=== PATIENT | male | born 1965 | race Caucasian/White ===

== ENCOUNTER 2023-02-03 08:38 | Inpatient (IN) | payer BC ==
--- OUTSIDE RECORDS SUMMARY | 2023-02-03 08:41 | XMS REPORT | Continuity of Care Document ---
:1965 Author Organization [facility] t Address [address] [facility] [address] [place] [address] Care Team Providers Name Role Phone Gale DUFF, David Primary Care Physician [phone] Problems This patient has no known problems. Allergies, Adverse Reactions, Alerts Allergy Allergy Status Severity Reaction(s) Onset Inactive Treating Comm ents Source Name Type Date Date Clinician Penicill Propensi Active ins ty to 09-18 adverse 00:00: reaction 00 to drug Medications Ordered Filled Start Stop Current Ordering Indication Dosage Frequency Signature Comments Components Source Medication Medication Date Date Medication? Clinician (SIG) Name Name TAKE 1 2021- No 20 TABLET BY 8-24 MOUTH EVERY 00:00: DAY IN THE 00 MORNING &lt 2021-0 No 5 8-09 00:00: 00 &lt 2021-0 No 8-08 00:00: 00 amlodipine 2021-0 No 1mg 5 mg tablet 09-19 00:00: 00 lisinopril 2021-0 No 1mg 20 mg -27 tablet 00:00: 00 fluticasone 2021-0 No 1mcg/ac propionate 09-19 tuation 50 00:00: mcg/actuati 00 on nasal spray,suspe nsion Zithromax 2020-0 No mg 250 mg 9-16 tablet 00:00: 00 amlodipine 2020-0 No 1mg 5 mg tablet 03-20 00:00: 00 Zyrtec 10 2020-0 No 1mg mg tablet 03-20 00:00: 00 lisinopril 2020-0 No 1mg 20 mg -28 tablet 00:00: 00 fluticasone 2020-0 No 1mcg/ac propionate 03-20 tuation 50 00:00: mcg/actuati 00 on nasal spray,suspe nsion amlodipine 2020-0 No 1mg 5 mg tablet 2- 00:00: 00 lisinopril 2020-0 No 1mg 20 mg 2- tablet 00:00: 00 fluticasone 1-0 No 1mcg/ac propionate 2 tuation 50 00:00: mcg/actuati 00 on nasal spray,suspe nsion fluticasone 2020-0 No 1mcg/ac propionate 1 tuation 50 00:00: mcg/actuati 00 on nasal spray,suspe nsion amlodipine 2020-0 No 1mg 5 mg tablet 6- 00:00: 00 lisinopril 2020-0 No 1mg 20 mg 6-25 tablet 00:00: 00 amlodipine 2020-0 No 1mg 5 mg tablet 5- 00:00: 00 lisinopril 2020-0 No 1mg 20 mg 2-27 tablet 00:00: 00 fluticasone 2020-0 No 1mcg/ac propionate 2 tuation 50 00:00: mcg/actuati 00 on nasal spray,suspe nsion Zyrtec 10 2020-0 No 1mg mg tablet 2-27 00:00: 00 amlodipine 2020-0 No 1mg 5 mg tablet 2-27 00:00: 00 amlodipine 2020-0 No 1mg 5 mg tablet 2-14 00:00: 00 Zyrtec 10 2020-0 No 1mg mg tablet 2-14 00:00: 00 lisinopril 2020-0 No 1mg 20 mg 2-14 tablet 00:00: 00 lisinopril 2020-0 No 1mg 20 mg 2-14 tablet 00:00: 00 Vital Signs Vital Name Observation Time Observation Value Comments Source BP Systolic 2022-04-17 08:16:00 136 mm[Hg] BP Diastolic 2022-04-17 08:16:00 92 mm[Hg] Weight Measured 2022-04-17 08:16:00 196.00 pounds Height Measured 2022-04-17 08:16:00 70.00 inches Body Temperature 2022-04-17 08:16:00 Heart Rate 2022-04-17 08:16:00 70.00 /min Respiratory Rate 2022-04-17 08:16:00 16.00 /min BP Systolic 2022-04-16 17:25:00 145 mm[Hg] BP Diastolic 2022-04-16 17:25:00 93 mm[Hg] Weight Measured 2022-04-16 17:25:00 196.00 pounds Height Measured 2022-04-16 17:25:00 70.00 inches Body Temperature 2022-04-16 17:25:00 98.10 degrees Heart Rate 2022-04-16 17:25:00 70.00 /min Respiratory Rate 2022-04-16 17:25:00 BP Systolic 2020-09-24 10:14:00 108 mm[Hg] BP Diastolic 2020-09-24 10:14:00 74 mm[Hg] Weight Measured 2020-09-24 10:14:00 194.60 pounds Height Measured 2020-09-24 10:14:00 70.00 inches Body Temperature 2020-09-24 10:14:00 97.20 degrees Heart Rate 2020-09-24 10:14:00 70.00 /min Respiratory Rate 2020-09-24 10:14:00 16.00 /min BP Systolic 2020-06-25 09:07:00 133 mm[Hg] BP Diastolic 2020-06-25 09:07:00 86 mm[Hg] Weight Measured 2020-06-25 09:07:00 193.00 pounds Height Measured 2020-06-25 09:07:00 70.00 inches Body Temperature 2020-06-25 09:07:00 98.00 degrees Heart Rate 2020-06-25 09:07:00 72.00 /min Respiratory Rate 2020-06-25 09:07:00 BP Systolic 2020-02-16 10:00:00 134 mm[Hg] BP Diastolic 2020-02-16 10:00:00 92 mm[Hg] Weight Measured 2020-02-16 10:00:00 192.00 pounds Height Measured 2020-02-16 10:00:00 70.00 inches Body Temperature 2020-02-16 10:00:00 97.30 degrees Heart Rate 2020-02-16 10:00:00 61.00 /min Respiratory Rate 2020-02-16 10:00:00 BP Systolic 2019-10-20 09:06:00 122 mm[Hg] BP Diastolic 2019-10-20 09:06:00 75 mm[Hg] Weight Measured 2019-10-20 09:06:00 192.10 pounds Height Measured 2019-10-20 09:06:00 70.00 inches Body Temperature 2019-10-20 09:06:00 97.20 degrees Heart Rate 2019-10-20 09:06:00 70.00 /min Respiratory Rate 2019-10-20 09:06:00 Procedures This patient has no known procedures. Plan of Care Planned Activity Planned Date Details Comments Source Goal Plan of Care Note [code = 11852-6] Goal Plan of Care Note [code = 84986-4] Goal Plan of Care Note [code = 39611-6] Goal Plan of Care Note [code = 94767-8] Goal Plan of Care Note [code = 34007-1] Goal Plan of Care Note [code = 54050-0] Goal Plan of Care Note [code = 92029-8] Encounters Start End Encounter Admission Attending Care Care Encounter Source Date/Time Date/Time Type Type Clinicians Facility Department ID 2022-12-24 2022-12-24 Outpatient SFA SFA [id number] Mat 10:43:45 10:43:45 0503 F [place] 2022-09-15 2022-09-15 Outpatient SFA SFA [id number] Mat 13:46:46 13:46:46 0123 F [place] 2022-04-16 2022-04-16 Outpatient [id number] 00:00:00 00:00:00 Visit [id number] Results Test Description Test Time Test Comments Results Result Comments Source LIPID PANEL 2022-04-18 03:35:42 Test Item Value Reference Range Interpretation Comme nts CHOLESTEROL (test code = 2210) 168 MG/DL <200 TRIGLYCERIDES (test code = 2232) 136 MG/DL <150 HDL CHOLESTEROL (test code = 26 MG/DL >39 L 0) CALC LDL CHOL (test code = 2237) 117 MG/DL <100 H NOTE: CALCULATED LDL IS BASED ON DAE-JAMES METHOD WHICHINCLUDES A DJUSTABLE TRIGLYCERIDE:VL DL CHOLESTEROL RATIO.THIS FACT OR VARIES BY MEASURED TRIGLY CERIDE AND NON-HDLCHOLESTE ROL CONCENTRATIONS WITH INCREASED CALCULATED LDL SEENIN HIGHER T RIGLYCERIDE OR LOWER NON-HDL S PECIMENS. FOR MOREINFORMATION , SEE CLIENT ANNOUNCEMENT AT [email or web address] RATIO LDL/HDL (test code = 4.50 RATIO <3.55 H 2237) COMPREHENSIVE METABOLIC [id number] 03:35:42 Test Item Value Reference Range Interpretation Comments GLUCOSE (test code = 103 MG/DL 70-99 H 2216) BUN (test code = 13 MG/DL 6-20 2207) CREATININE (test 1.07 MG/DL 0.80-1.40 code = 221) eGFR (2020 CKD-EPI) 80 >60 (test code = 24196) ML/MIN/1.73 CALC BUN/CREAT (test 12 RATIO 6-28 code = 2235) SODIUM (test code = 136 MEQ/L 306-093 5880) POTASSIUM (test code 4.5 MEQ/L 3.5-5.4 = 2227) CHLORIDE (test code 100 MEQ/L 95-107 = 2214) CARBON DIOXIDE (test 26 MEQ/L 19-31 code = 2206) CALCIUM (test code = 9.7 MG/DL 8.5-10.5 2208) PROTEIN, TOTAL (test 11.0 G/DL 6.1-8.3 H code = 2229) ALBUMIN (test code = 3.7 G/DL 3.5-5.2 2200) CALC GLOBULIN (test 7.3 G/DL 1.9-3.7 H code = 2240) CALC A/G RATIO (test 0.5 RATIO 1.0-2.6 L code = 2234) BILIRUBIN, TOTAL 0.4 MG/DL See_Comment [Automated message] (test code = 220) The syste m which generated this result transmitted ref erence range: <=1.2. T he reference range was not used to int erpret this result as normal/abnormal . ALKALINE PHOSPHATASE 55 U/L 40-123 (test code = 2204) AST (test code = 35 U/L 9-50 2217) ALT (test code = 60 U/L 5-50 H UNLESS OTH ERWISE 2218) INDICATED, ALL TESTING PERFORM [facility]. [address] [facility] [address] GERTRUDE RODRIGEZ DIRECTOR: AZRA WHALEY M.D. IA NUMBER [id number] CAP ACCREDITATION N O. [id number] HEMOGLOBIN [id number] 02:37:03 Test Item Value Reference Range Interpretation Comments HEMOGLOBIN A1c (test code = 69102) 6.1 % 4.2-5.6 H
[2023-02-03] MEDS ORDERED: Ringers Lactate 1,000 ML IV ONE (09:22)
[2023-02-03 09:28] LABS: Absolute Lymphocytes (CBC) 0.2 K/uL (0.7-4.9); Hematocrit 17.6 % (39.6-49.0); Lymphocytes % 3.3 % (15.3-44.8); MCV 103.2 fL (80-100); MPV 7.6 fL (7.6-11.3); Protime INR 1.58
[2023-02-03 09:48] LABS: Bilirubin Total 0.5 mg/dL (0.2-1.0); Potassium 3.1 mEq/L (3.5-5.1); Protein, Total 13.3 g/dL (6.4-8.2)
--- NOTE | 2023-02-03 09:52 | RAD REPORT ---
EXAM DESCRIPTION: RAD - Chest Single View - 02/03/2023 9:43 am CLINICAL HISTORY: generalized weaknes COMPARISON: No comparisons FINDINGS: Lines: None. Lungs: Mild right basilar opacities. Pleural: No significant pleural effusions or pneumothorax. Cardiac: The heart size is within normal limits. Mediastinum: Within normal limits. Bones: No acute fractures. Other: None IMPRESSION: Mild right basilar opacities favored to represent atelectasis. Pneumonia or pneumonitis also within differential.
[2023-02-03 09:58] LABS: White Blood Cell Scan OK (OK)
[2023-02-03 09:59] LABS: Anisocytosis 1+; Blood Morphology Comment NOTED (NOT SEEN); Macrocytosis 1+; Platelet Estimate DECR
[2023-02-03] MEDS ORDERED: Levofloxacin 750mg IV 750 MG/150 ML BAG IV ONE (10:13)
[2023-02-03] MEDS ORDERED: NA CHLORIDE 0.9% 250 ML ONE (10:29)
--- NOTE | 2023-02-03 10:35 | ER ---
Nurse's Notes [facility] Name: Attila Horn Age: 57 yrs Sex: Male : 1965 Arrival Date: 02/03/2023 Time: 08:38 Bed 20 Private MD: Rhona Beasley R Diagnosis: Unspecified bacterial pneumonia;Diarrhea, unspecified;Hypokalemia;Hypo-osmolality and hyponatremia;Acute Kidney Injury Presentation: 02/03 08:45 Chief complaint: Patient states: Pt reports weakness, fever, shortness of breath X 6-7 cm10 days. Patient was seen on Thursday at [place] and has not improved. Pt A\T\Ox4, respirations even and unlabored. Pt reports dizziness, denies chest pain. Pt reports diarrhea. Coronavirus screen: Vaccine status: Patient reports being unvaccinated. At this time, the client does not indicate any symptoms associated with coronavirus-19. Ebola Screen: No symptoms or risks identified at this time. Initial Sepsis Screen: Does the patient meet any 2 criteria? HR > 90 bpm. Risk Assessment: Do you want to hurt yourself or someone else? Patient reports no desire to harm self or others. 08:45 Method Of Arrival: Ambulatory cm10 08:45 Acuity: DAIN 3 cm10 09:00 No acute neurological deficit is noted. Pre-hospital glucose is not applicable to this eh3 patient. Initial Sepsis Screen: Does the patient have a suspected source of infection? Yes: Acute abdominal pain. Onset of symptoms was January 27, 2023. Triage Assessment: 08:48 General: Appears in no apparent distress. General: Behavior is calm, cooperative, cm10 appropriate for age. Historical: - Allergies: 08:48 PENICILLINS; cm10 - Immunization history:: Adult Immunizations up to date. - Social history:: Smoking status: Patient denies any tobacco usage or history of. Screenin:00 [facility] ED Fall Risk Assessment (Adult) Score/Fall Risk Level 0 - 2 = Low Risk. Abuse eh3 screen: Denies threats or abuse. Denies injuries from another. Nutritional screening: No deficits noted. Tuberculosis screening: No symptoms or risk factors identified. Assessment: 09:00 General: Appears in no apparent distress. uncomfortable, Behavior is cooperative, eh3 appropriate for age. Pain: Denies pain. Neuro: Level of Consciousness is awake, alert, obeys commands, Oriented to person, place, time, situation. Cardiovascular: Capillary refill < 3 seconds Rhythm is sinus tachycardia. Respiratory: Airway is patent Respiratory effort is labored, Respiratory pattern is regular, symmetrical, tachypnea. GI: Abdomen is round Reports cramping, diarrhea. Derm: Skin is diaphoretic, Skin is flushed. Musculoskeletal: Circulation, motion, and sensation intact. 09:00 VAN Scoring: Arm Drift: Patients demonstrates NO arm weakness. Patient is VAN Negative. eh3 TNKase (Tenecteplase) Screening: Indications: Definite evidence of stroke, ischemic, embolic, or hypertensive: No. 10:00 Reassessment: Patient appears in no apparent distress at this time. Patient and/or eh3 family updated on plan of care and expected duration. Pain level reassessed. Patient is alert, oriented x 3, equal unlabored respirations, skin warm/dry/pink. 11:00 Reassessment: Patient appears in no apparent distress at this time. Patient and/or eh3 family updated on plan of care and expected duration. Pain level reassessed. Patient is alert, oriented x 3, equal unlabored respirations, skin warm/dry/pink. 12:00 Reassessment: Patient appears in no apparent distress at this time. Patient and/or eh3 family updated on plan of care and expected duration. Pain level reassessed. Patient is alert, oriented x 3, equal unlabored respirations, skin warm/dry/pink. 13:00 Reassessment: Patient appears in no apparent distress at this time. Patient and/or eh3 family updated on plan of care and expected duration. Pain level reassessed. Patient is alert, oriented x 3, equal unlabored respirations, skin warm/dry/pink. 13:15 Reassessment: Blood transfusion started, see paper transfusion record for additional eh3 documentation. 14:00 Reassessment: Patient appears in no apparent distress at this time. Patient and/or eh3 family updated on plan of care and expected duration. Pain level reassessed. Patient is alert, oriented x 3, equal unlabored respirations, skin warm/dry/pink. Vital Signs: 08:45 BP 100 / 68; Pulse 118; Resp 20; Temp 99.1; Pulse Ox 99% on R/A; Weight 81.65 kg; cm10 Height 5 ft. 8 in. ; Pain 6/10; 09:00 BP 105 / 71; Pulse 112; Resp 22; Pulse Ox 99% on R/A; eh3 09:30 BP 108 / 68; Pulse 113; Resp 27; Pulse Ox 100% on R/A; eh3 10:00 BP 109 / 74; Pulse 118; Resp 32; Pulse Ox 100% on R/A; eh3 10:30 BP 105 / 74; Pulse 119; Resp 28; Pulse Ox 99% on R/A; eh3 11:00 BP 113 / 77; Pulse 125; Resp 32; Pulse Ox 97% on R/A; eh3 11:30 BP 120 / 82; Pulse 136; Resp 32; Pulse Ox 98% ; eh3 12:30 BP 117 / 71; Pulse 127; Resp 40; Pulse Ox 96% on R/A; eh3 13:00 BP 115 / 77; Pulse 129; Resp 39; Temp 103.1(O); Pulse Ox 96% on R/A; eh3 13:30 BP 100 / 71; Pulse 128; Resp 43; Pulse Ox 95% on R/A; eh3 14:00 BP 90 / 59; Pulse 127; Resp 22; Temp 102; Pulse Ox 97% on R/A; eh3 08:45 Body Mass Index 27.37 (81.65 kg, 172.72 cm) cm10 08:45 Pain Scale: Adult cm10 NIH Stroke Scale Scores: 09:00 NIHSS Score: 0 eh3 ED Course: 08:42 Patient arrived in ED. mr 08:42 Rhona Beasley MD is Private Physician. mr 08:45 Felix Roberto DO is Attending Physician. ms3 08:48 Triage completed. cm10 08:49 Arm band placed on Patient placed in an exam room. cm10 09:00 Stephanie Hinojosa, RN is Primary Nurse. eh3 09:00 Patient has correct armband on for positive identification. Placed in gown. Bed in low eh3 position. Call light in reach. Side rails up X2. Adult w/ patient. Client placed on continuous cardiac and pulse oximetry monitoring. NIBP monitoring applied. Door closed. Noise minimized. 09:00 Inserted saline lock: 20 gauge in right antecubital area, using aseptic technique. eh3 Blood collected. IV inserted by JAQUI. 09:45 Chest Single View XRAY In Process Unspecified. EDMS 10:04 Second set of blood cultures drawn by me. Inserted saline lock: 20 gauge in left 3 antecubital area, using aseptic technique. Blood collected. 10:34 Louisa Montero MD is Hospitalizing Provider. ms3 11:51 Chest Abd Pelvis Wo Con In Process Unspecified. EDMS 14:54 No provider procedures requiring assistance completed. Patient admitted, IV remains in [address] Administered Medications: 09:18 Drug: Lactated Ringers Solution IV 1000 ml Route: IV; Rate: bolus; Site: right kc6 antecubital; 12:00 Follow up: IV Status: Completed infusion; IV Intake: 1000ml 3 10:10 Drug: levofloxacin IVPB 750 mg Volume: 150 ml; Route: IVPB; Infused Over: 90 mins; kc6 Site: left antecubital; 11:40 Follow up: Response: No adverse reaction; IV Status: Completed infusion; IV Intake: eh3 150ml Medication: 14:54 VIS not applicable for this client. 3 Intake: 11:40 IV: 150ml; Total: 150ml. eh3 12:00 IV: 1000ml; Total: 1150ml. 3 Outcome: 10:34 Decision to Hospitalize by Provider. ms3 14:54 Admitted to Tele accompanied by tech, family with patient, via stretcher, room 424, 3 Report called to Nisa 14:54 Condition: stable 14:54 Instructed on the need for admit. 14:57 Patient left the ED. 3 NIH Stroke Scale - NIH Stroke Score Date: 02/03/2023 Time: 09:00 Total Score = 0 10. Dysarthria (speech clarity - read or repeat words) - 0(Normal) 11. Extinction and Inattention (visual/tactile/auditory/spatial/personal) - 0(No abnormality) 1a. Level of Consciousness (LOC) - 0(Alert) 1b. Level of Consciousness (LOC) (Month \T\ Age) - 0(Both) 1c. LOC Commands (Open \T\ Closes Eyes/Progressive Assembler And Fitter) - 0(Both) 2. Best Gaze (Lateral Gaze Paresis) - 0(Normal) 3. Visual Field Loss - 0(No visual loss) 4. Facial Palsy - 0(Normal) 5a. Left Arm: Motor (10-second hold) - 0(No drift) 5b. Right Arm: Motor (10-second hold) - 0(No drift) 6a. Left Leg: Motor (5-second hold - always test supine) - 0(No drift) 6b. Right Leg: Motor (5-second hold - always test supine) - 0(No drift) 7. Limb Ataxia (finger/nose \T\ heel/lin - test with eyes open) - 0(Absent) 8. Sensory Loss (pinprick arms/legs/face) - 0(Normal) 9. Best Language: Aphasia (description/naming/reading) - 0(No aphasia) Initials: [facility] Signatures: Dispatcher [employer] EDMD Micheal, Lakesha mr FelisaFelix, DO DO ms3 Stephanie Hinojosa, RN ROSI 3 Jyotsna Nunn RN RN kc6 Judy Curiel RN RN cm10 Corrections: (The following items were deleted from the chart) 14:15 09:34 Stephanie Hinojosa, RN is Primary Nurse. [place] [address] 14:21 14:00 BP 90 / 59; Pulse 127bpm; Resp 22bpm; Pulse Ox 97% RA; [facility]
--- NOTE | 2023-02-03 10:35 | EDPHYS ---
Physician Documentation [facility] Name: Attila Horn Age: 57 yrs Sex: Male : 1965 Arrival Date: 02/03/2023 Time: 08:38 Bed 20 Private MD: Rhona Beasley R ED Physician Felix Roberto HPI: 02/03 09:08 This 57 yrs old Male presents to ER via Ambulatory with complaints of Weakness, ms3 Shortness Of Breath, Diarrhea, Fever. 09:08 57-year-old male with past medical history of hypertension presents for generalized ms3 weakness for 1 week. Patient was treated for bronchitis last week at [facility] with prednisone and azithromycin. Patient states he currently has diarrhea, fever and shortness of breath. Patient denies pain. Patient denies alleviating or inciting factors.. Historical: - Allergies: 08:48 PENICILLINS; cm10 - Immunization history:: Adult Immunizations up to date. - Social history:: Smoking status: Patient denies any tobacco usage or history of. ROS: 09:08 Neck: Negative for injury, pain, and swelling, Cardiovascular: Negative for chest pain, ms3 and palpitations. Respiratory: Negative for shortness of breath, cough, wheezing, and pleuritic chest pain, Abdomen/GI: Negative for abdominal pain, nausea, vomiting, diarrhea, and constipation, MS/Extremity: Negative for injury and deformity, Skin: Negative for injury, rash, and discoloration. 09:08 Constitutional: Positive for chills. 09:08 Neuro: Positive for weakness. 09:08 All other systems are negative. Exam: 09:08 Constitutional: This is a well developed, well nourished patient who is awake, alert, ms3 and in no acute distress. Head/Face: Normocephalic, atraumatic. Neck: Trachea midline, no cervical lymphadenopathy. Supple, full range of motion without nuchal rigidity, or vertebral point tenderness. No Meningismus. Chest/axilla: Normal chest wall appearance and motion. Nontender with no deformity. 09:08 Respiratory: Lungs have equal breath sounds bilaterally, clear to auscultation and percussion. No rales, rhonchi or wheezes noted. No increased work of breathing, no retractions or nasal flaring. Abdomen/GI: Soft, non-tender, with normal bowel sounds. No distension or tympany. No guarding or rebound. No evidence of tenderness throughout. Skin: Warm, dry with normal turgor. Normal color with no rashes, no lesions, and no evidence of cellulitis. MS/ Extremity: Pulses equal, no cyanosis. Neurovascular intact. Full, normal range of motion. 09:08 Cardiovascular: Rate: tachycardic, Rhythm: regular, Pulses: no pulse deficits are appreciated, Heart sounds: normal, normal S1and S2. 10:37 ECG was reviewed by the Attending Physician. ms3 Vital Signs: 08:45 BP 100 / 68; Pulse 118; Resp 20; Temp 99.1; Pulse Ox 99% on R/A; Weight 81.65 kg; cm10 Height 5 ft. 8 in. ; Pain 6/10; 09:00 BP 105 / 71; Pulse 112; Resp 22; Pulse Ox 99% on R/A; eh3 09:30 BP 108 / 68; Pulse 113; Resp 27; Pulse Ox 100% on R/A; eh3 10:00 BP 109 / 74; Pulse 118; Resp 32; Pulse Ox 100% on R/A; eh3 10:30 BP 105 / 74; Pulse 119; Resp 28; Pulse Ox 99% on R/A; eh3 11:00 BP 113 / 77; Pulse 125; Resp 32; Pulse Ox 97% on R/A; eh3 11:30 BP 120 / 82; Pulse 136; Resp 32; Pulse Ox 98% ; eh3 12:30 BP 117 / 71; Pulse 127; Resp 40; Pulse Ox 96% on R/A; eh3 13:00 BP 115 / 77; Pulse 129; Resp 39; Temp 103.1(O); Pulse Ox 96% on R/A; eh3 13:30 BP 100 / 71; Pulse 128; Resp 43; Pulse Ox 95% on R/A; eh3 14:00 BP 90 / 59; Pulse 127; Resp 22; Temp 102; Pulse Ox 97% on R/A; eh3 08:45 Body Mass Index 27.37 (81.65 kg, 172.72 cm) cm10 08:45 Pain Scale: Adult cm10 NIH Stroke Scale Scores: 09:00 NIHSS Score: 0 eh3 MDM: 09:43 Patient medically screened. ms3 10:34 Data reviewed: vital signs, nurses notes, lab test result(s), radiologic studies, plain ms3 films, and as a result, I will admit patient. Consideration of Admission/Observation Patient was admitted/placed on observation. Management of patient was discussed with the following: Hospitalist: Daniel. I considered the following discharge prescriptions or medication management in the emergency department Medications were administered in the Emergency Department. See MAR. Independent interpretation of the following test(s) in the Emergency Department magazine worker: rate is 118 beats/min, Rhythm is sinus tachycardia, with no ectopy, Interpretation: normal rhythm, tachycardia. Counseling: I had a detailed discussion with the patient and/or guardian regarding: the historical points, exam findings, and any diagnostic results supporting the discharge/admit diagnosis, lab results, radiology results, the need for further work-up and treatment in the hospital. Response to treatment: the patient's symptoms have mildly improved after treatment, and as a result, I will admit patient. 02/03 09:07 Order name: Blood Culture Adult (2) ms3 02/03 09:07 Order name: CBC with Diff; Complete Time: 10:30 ms3 02/03 09:07 Order name: CMP; Complete Time: 09:58 ms3 02/03 09:07 Order name: Lactate w/ 2H reflex if indic.; Complete Time: 09:43 ms3 02/03 09:07 Order name: Protime (+inr); Complete Time: 09:43 ms3 02/03 09:07 Order name: Ptt, Activated; Complete Time: 09:43 ms3 02/03 09:08 Order name: Urinalysis w/ reflexes ms3 02/03 09:31 Order name: CBC Smear Scan; Complete Time: 10:30 EDMS 02/03 09:45 Order name: Bb Add On ms3 02/03 09:45 Order name: Type And Screen ms3 02/03 10:57 Order name: B12; Complete Time: 12:22 ms3 02/03 10:57 Order name: Ferritin; Complete Time: 12:22 ms3 02/03 10:57 Order name: Iron Level ms3 02/03 10:57 Order name: Retic Count; Complete Time: 12:22 ms3 02/03 10:57 Order name: TRANSFERRIN SAT/IRON BINDING; Complete Time: 12:22 ms3 02/03 11:36 Order name: ABO/RH no charge; Complete Time: 12:22 EDMS 02/03 11:39 Order name: Packed RBC Leukored EDMS 02/03 12:32 Order name: Fecal Leukocyte Stain EDMS 02/03 12:32 Order name: Ova and Parasites EDMS 02/03 12:32 Order name: Stool Culture EDMS 02/03 13:06 Order name: Phosphorus EDMS 02/03 13:06 Order name: T4 Free EDMS 02/03 13:06 Order name: Magnesium EDMS 02/03 13:06 Order name: Thyroid Stimulating Hormone EDMS 02/03 13:11 Order name: SARS-COV-2 RT PCR bd 02/03 14:15 Order name: SARS-COV-2 RT PCR EDMS 02/03 09:08 Order name: Chest Single View XRAY; Complete Time: 09:58 ms3 02/03 11:51 Order name: Chest Abd Pelvis Wo Con; Complete Time: 12:22 EDMS 02/03 09:07 Order name: EKG; Complete Time: 09:08 ms3 02/03 09:07 Order name: Accucheck; Complete Time: 09:08 ms3 02/03 09:07 Order name: Cardiac monitoring; Complete Time: 09:08 ms3 02/03 09:07 Order name: EKG - Nurse/Tech; Complete Time: 09:08 ms3 02/03 09:07 Order name: IV Saline Lock - Large Bore; Complete Time: 09:08 ms3 02/03 09:07 Order name: Labs collected and sent; Complete Time: 09:13 ms3 02/03 09:07 Order name: O2 Per Protocol; Complete Time: 09:08 ms3 02/03 09:07 Order name: O2 Sat Monitoring; Complete Time: 09:08 ms3 02/03 09:07 Order name: Vital Signs; Complete Time: 09:08 ms3 02/03 10:22 Order name: Labs - recollect needed: collect aborh no charge; Complete Time: 11:40 bd EC:37 Rate is 113 beats/min. Rhythm is regular. QRS [place] is Normal. AK interval is normal. ms3 QRS interval is normal. Clinical impression: NSR w/ Non-specific ST/T Changes. Interpreted by me. Reviewed by me. Administered Medications: 09:18 Drug: Lactated Ringers Solution IV 1000 ml Route: IV; Rate: bolus; Site: right kc6 antecubital; 12:00 Follow up: IV Status: Completed infusion; IV Intake: 1000ml eh3 10:10 Drug: levofloxacin IVPB 750 mg Volume: 150 ml; Route: IVPB; Infused Over: 90 mins; kc6 Site: left antecubital; 11:40 Follow up: Response: No adverse reaction; IV Status: Completed infusion; IV Intake: eh3 150ml Disposition Summary: 02/03/23 10:34 Hospitalization Ordered Hospitalization Status: Inpatient Admission ms3 Provider: Louisa Montero ms3 Location: Telemetry/[facility] (Inpatient) ms3 Condition: Stable ms3 Problem: new ms3 Symptoms: are unchanged ms3 Bed/Room Type: Standard ms3 Room Assignment: 424(02/03/23 13:19) bd Diagnosis - Unspecified bacterial pneumonia ms3 - Diarrhea, unspecified ms3 - Hypokalemia ms3 - Hypo-osmolality and hyponatremia ms3 - Acute Kidney Injury ms3 Forms: - Medication Reconciliation Form ms3 - SBAR form ms3 Critical care time excluding procedures: 10:36 Critical care time: Bedside Care: 30 minutes, Consultation: 10 minutes, Family ms3 Intervention: 10 minutes. Total time: 50 minutes NIH Stroke Scale - NIH Stroke Score Date: 02/03/2023 Time: 09:00 Total Score = 0 10. Dysarthria (speech clarity - read or repeat words) - 0(Normal) 11. Extinction and Inattention (visual/tactile/auditory/spatial/personal) - 0(No abnormality) 1a. Level of Consciousness (LOC) - 0(Alert) 1b. Level of Consciousness (LOC) (Month \T\ Age) - 0(Both) 1c. LOC Commands (Open \T\ Closes Eyes/Solutions Executive Security) - 0(Both) 2. Best Gaze (Lateral Gaze Paresis) - 0(Normal) 3. Visual Field Loss - 0(No visual loss) 4. Facial Palsy - 0(Normal) 5a. Left Arm: Motor (10-second hold) - 0(No drift) 5b. Right Arm: Motor (10-second hold) - 0(No drift) 6a. Left Leg: Motor (5-second hold - always test supine) - 0(No drift) 6b. Right Leg: Motor (5-second hold - always test supine) - 0(No drift) 7. Limb Ataxia (finger/nose \T\ heel/lin - test with eyes open) - 0(Absent) 8. Sensory Loss (pinprick arms/legs/face) - 0(Normal) 9. Best Language: Aphasia (description/naming/reading) - 0(No aphasia) Initials: 3 Signatures: Dispatcher [employer] EDMS Manju Medina bd Felisa, Felix, DO ms3 Jyotsna Nunn RN RN kc6 Judy Curiel RN RN cm10 Stephanie Hinojosa RN eh3 Corrections: (The following items were deleted from the chart) 11:50 11:19 Abdomen Wo Contrast ordered. EDMS EDMS 11:51 11:19 Thorax Wo Con ordered. EDMS EDMS 13:19 10:34 ms3 bd
[2023-02-03 11:37] LABS: RBC Red Blood Cell Count 1.63 M/uL (4.33-5.43)
[2023-02-03 11:45] LABS: Ferritin 3362.6 ng/mL (26-388)
--- NOTE | 2023-02-03 12:06 | RAD REPORT ---
EXAM DESCRIPTION: CTChest Abd Pelvis Wo Con - 02/03/2023 11:51 am CLINICAL HISTORY: SOB COMPARISON: No comparisons TECHNIQUE: CT of the chest, abdomen, and pelvis was performed. All CT scans are performed using dose optimization technique as appropriate and may include automated exposure control or mA/KV adjustment according to patient size. FINDINGS: Thorax: Chest Wall: No abnormal mass Lungs: No acute abnormality. Pleura: No effusions or pneumothorax. Holly/Mediastinum: No lymphadenopathy. Mild circumferential thickened distal esophagus. Aorta/Pulmonary Arteries: Unremarkable Heart: Normal size. Aortic valve calcifications. Abdomen/Pelvis: Liver: Hepatomegaly with steatosis. No suspicious liver lesions. Biliary: No biliary ductal dilatation. Stomach: No significant focal abnormality. Duodenum: No significant focal abnormality. Pancreas: No significant abnormality. Spleen: No significant abnormality. Adrenal: No suspicious lesions. Kidney/ureter: No hydronephrosis. No renal calculi. Mild nonspecific bilateral perinephric stranding. No ureteral calculi. Retroperitoneum: No retroperitoneal adenopathy. Vascular: No aneurysm. Atherosclerosis . Bowel: Scattered air-fluid levels are present throughout the:. No bowel obstruction.. No appendicitis . Peritoneum: No ascites or free air. Bladder: Grossly unremarkable. Reproductive: No adnexal masses. Bones: No acute fracture. Other: n/a IMPRESSION: 1. Liquid stool throughout the colon likely representing diarrheal disease. No bowel obs truction. 2. No acute findings within the chest.
[2023-02-03] MEDS ORDERED: HYDROCODONE/APAP 5/325 MG TAB PO PRN (12:27)
[2023-02-03] MEDS: ACETAMINOPHEN 325 MG TABLET PO PRN ×2 (12:42→20:08)
[2023-02-03] MEDS: NA CHLORIDE 0.9% 1,000 ML IV SCH (12:42)
--- NOTE | 2023-02-03 12:45 | P.HP ---
Certification for Inpatient Patient admitted to: Inpatient With expected LOS: >2 Midnights Patient will require the following post-hospital care: None Practitioner: I am a practitioner with admitting privileges, knowledge of patient current condition, hospital course, and medical plan of care. Services: Services provided to patient in accordance with Admission requirements found in Title 42 Section 412.3 of the Code of Federal Regulations Patient History Date of Service: 02/03/23 Reason for admission: Diarrhea, fever, weakness, dizziness History of Present Illness: Patient is a 57-year-old male with a past medical history significant for hypertension who presents with complaint of diarrhea, generalized weakness and dizziness that has been ongoing for the past 5 days. Patient also reported that 7 days ago he started having intermittent episodes of chills and shortness of breath. Patient reported associated signs and symptoms of headache, fever, diaphoresis, cough, fatigue, and chest pain located in the substernal chest area. Patient rated pain 6/10 in severity and described pain as pressure in quality. Patient denies any other signs or symptoms. Symptoms are aggravated or relieved by nothing. Patient denies smoking and reports occasional use of alcohol. Patient decided to present to the hospital due to worsening symptoms. Of note, patient reported that he was treated for bronchitis at [place] with steroids and azithromycin last week and patient denies any GI bleed. Allergies Penicillins Allergy (Unknown, Unverified 02/03/23 12:32) UNKNOWN Home Medications: Amlodipine [Norvasc*] 5 mg PO DAILY 02/03/23 Lisinopril [Zestril] 20 mg PO DAILY 02/03/23 - Past Medical/Surgical History -: HTN Past Surgical History: Reviewed- Non-Contributory - Family History Father -: Diabetes - Social History Smoking Status: Never smoker Alcohol use: Yes Caffeine use: Yes Place of Residence: Home Review of Systems General: Fever, Chills, Sweats, Weakness, Malaise, Other (fatigue) Eyes: Unremarkable ENT: Unremarkable Respiratory: Cough, Shortness of Breath Cardiovascular: Chest Pain Gastrointestinal: Diarrhea, Distention Genitourinary: Unremarkable Musculoskeletal: Unremarkable Integumentary: Unremarkable Neurological: Weakness, Other (Dizziness, MCKOY) Lymphatics: Unremarkable Physical Examination - Vital Signs Temperature: 103.1 F - Physical Exam General: Alert, Oriented x3, Cooperative, Mild distress HEENT: Atraumatic, PERRLA, Mucous membr. moist/pink, EOMI, Sclerae nonicteric Neck: Supple, 2+ carotid pulse no bruit, No LAD, Without JVD or thyroid abnormality Respiratory: Diminished Cardiovascular: No edema, Regular rate/rhythm, Normal S1 S2 Capillary refill: <2 Seconds Gastrointestinal: Normal bowel sounds, Distended, Tenderness Musculoskeletal: No clubbing, No contractures, No tenderness Integumentary: No rashes, No breakdown Neurological: Normal speech, Normal tone, Normal affect Lymphatics: No axilla or inguinal lymphadenopathy - Studies Laboratory Data (last 24 hrs) 02/03/23 09:11: PT 17.4 H, INR 1.58, APTT 26.5 02/03/23 09:11: Sodium 129 L, Potassium 3.1 L, BUN 45 H, Creatinine 2.00 H, Gluc ose 132 H, Total Bilirubin 0.5, AST 68 H, ALT 82 H, Alkaline Phosphatase 50 02/03/23 09:11: WBC 7.40, Hgb 6.0 L, Hct 17.6 L, Plt Count 49 L Assessment and Plan - Plan --Anemia. Unclear etiology. Hemoglobin at 6.0 on presentation to the ER. Patient denies any GI bleed. Labs (Platelets-49, PT:17.4, AST\ALT: 68\82, Albumin-2.0) concerning for liver cirrhosis with possible varices. CT abdomen indicates Hepatomegaly with steatosis. No suspicious liver lesions. Abdominal ultrasound pending for further evaluation. Continue GI prophylaxis with Protonix drip. 1 units of PRBC ordered in the ER. We will continue to monitor H&H. Gastroenterology consulted. Will await further recommendation. --Sepsis POA. Likely secondary to UTI. Continue antibiotics. --Diarrhea. Stool studies pending to rule out any infectious process. Continue IV hydration. --JAYCE. Likely prerenal secondary to poor p.o. intake and diarrhea. Nephrology consulted. Continue IV hydration. We will await further recommendation from neurologist. -- Hematochromatosis. Likely secondary to liver disease. [id number], [id number]. Outside Plant Cable Engineer on board. We will await further recommendations. --Hyponatremia. Further management per offset press operator. --Hypokalemia. Replete as needed. --Thrombocytopenia. Likely secondary to liver disease. Continue supportive care. -- UTI POA. Patient placed on antibiotics. Urine cultures pending. -- Hypertension. Patient currently hypotensive. We will hold off on BP meds. Continue IV hydration. We will continue to monitor blood pressure levels. -- DVT prophylaxis with SCDs. Discharge Plan: Home Plan to discharge in: Greater than 2 days - Advance Directives Does patient have a Living Will: No Does patient have a Durable POA for Healthcare: No - Code Status/Comfort Care Code Status Assessed: Yes Physician Review: Patient Assessed, Agree with Above Assessment and Plan Critical Care: No
[2023-02-03] MEDS ORDERED: ACETAMINOPHEN 325 MG TABLET ONE (12:51)
[2023-02-03] MEDS ORDERED: NA CHLORIDE 0.9% 1,000 ML ONE (12:51)
[2023-02-03 13:06] LABS: Phosphorus 3.3 mg/dL (2.5-4.9); Thyroid Stimulating Hormone 1.17 uIU/mL (0.358-3.740)
[2023-02-03 13:26] LABS: Specific Gravity 1.015 (1.005-1.030); Urine Bacteria None Seen /HPF (<20); Urine Bilirubin NEGATIVE (Negative); Urine Blood 3+ (Negative); Urine Clarity Extremely Turbid (Clear); Urine Color Light-Orange (Yellow); Urine Glucose NEGATIVE (Negative); Urine Mucus Slight /HPF (None Seen); Urine Protein 1+ (Negative); Urine Urobilinogen Normal (Normal); Urine pH 5.5 (5.0-7.0)
[2023-02-03] MEDS: PANTOPRAZOLE INJ 80 MG in NA CHLORIDE 0.9% 250 ML IV SCH ×2 (13:30→23:30)
[2023-02-03] MEDS ORDERED: CEFTRIAXONE 1,000 MG in NA CHLORIDE 0.9% 50 ML IVPB SCH (15:00)
[2023-02-03 15:05] VITALS: BMI 27.3
[2023-02-03 16:08] LABS: Hepatitis B Core IgM Nonreactive (Nonreactive); Hepatitis B surface AG Interp. Nonreactive (Nonreactive); Hepatitis C Virus Ab Nonreactive (Nonreactive)
[2023-02-03] MEDS: KCL 20 MEQ/100 mL IVPB 20 MEQ/100 ML BAG IV SCH ×2 (16:32→18:36)
[2023-02-03 17:27] LABS: Absolute Lymphocytes (CBC) 0.3 K/uL (0.7-4.9); Hematocrit 19.1 % (39.6-49.0); Lymphocytes % 4.2 % (15.3-44.8); MCV 98.3 fL (80-100); MPV 7.4 fL (7.6-11.3); RBC Red Blood Cell Count 1.95 M/uL (4.33-5.43)
--- NOTE | 2023-02-03 18:00 | RAD REPORT ---
EXAM DESCRIPTION: US - Abdomen Exam Complete - 02/03/2023 1:50 pm CLINICAL HISTORY: Acute liver disease COMPARISON: None. TECHNIQUE: Sonographic grayscale and color flow images of the abdomen were obtained. FINDINGS: Gallbladder size is normal. Moderate layering echogenic sludge. No gallstones, wall thicke jose or pericholecystic fluid. Common bile duct is normal normal in caliber, 4 millimeter, with no co mmon duct stone identified. The liver demonstrates diffuse parenchymal hyperechogenicity suggesting steatosis. The Spleen shows no suspicious findings. Pancreas and other midline structures are obscured by overlying bowel gas. No hydronephrosis or suspicious mass in either kidney. Incidentally noted left mid to lower pole 1.5 centimeter anechoic cyst. Aorta is normal is size. No ascites or bulky lymphadenopathy. IMPRESSION: Gallbladder sludge. Diffuse hepatic parenchymal hyperechogenicity suggesting steatosis. Incidentally noted left renal cyst. No other acute abnormalities.
--- NOTE | 2023-02-03 19:53 | RAD REPORT ---
EXAM DESCRIPTION: RADChest Single View02/03/2023 7:20 pm CLINICAL HISTORY: SOB COMPARISON: Chest Single View dated 02/03/2023 TECHNIQUE: Portable AP view of the chest. FINDINGS: The lungs show near complete resolution of right basilar airspace opacities. No pneumotho rax or effusion. The cardiomediastinal contours are unremarkable. IMPRESSION: Near complete resolution of right basilar airspace opacities.
[2023-02-03 20:29] LABS: Hematocrit 19.8 % (39.6-49.0)
[2023-02-04] MEDS ORDERED: NA CHLORIDE 0.9% 100 ML ONE (00:36)
[2023-02-04] MEDS ORDERED: CYANOCOBALAMIN 1000MCG/ML INJ IM ONE (01:07)
[2023-02-04] MEDS: NA CHLORIDE 0.9% 1,000 ML IV SCH (02:20)
[2023-02-04] MEDS: ACETAMINOPHEN 325 MG TABLET PO PRN (03:20)
[2023-02-04] MEDS: METRONIDAZOLE 500mg IVPB 500 MG/100 ML BAG IV SCH ×2 (04:02→16:51)
[2023-02-04 07:03] LABS: Absolute Lymphocytes (CBC) 0.3 K/uL (0.7-4.9); Hematocrit 20.7 % (39.6-49.0); Lymphocytes % 4.5 % (15.3-44.8); MCV 96.4 fL (80-100); MPV 8.1 fL (7.6-11.3); RBC Red Blood Cell Count 2.14 M/uL (4.33-5.43)
[2023-02-04 07:25] LABS: Albumin 1.6 g/dL (3.4-5.0); Bilirubin Total 0.5 mg/dL (0.2-1.0); Potassium 3.5 mEq/L (3.5-5.1); Protein, Total 10.4 g/dL (6.4-8.2)
[2023-02-04] MEDS ORDERED: Ringers Lactate 1,000 ML IV ONE (08:19)
--- NOTE | 2023-02-04 08:20 | EKG ---
Test Date: 2023-02-03 Test Time: 08:56:18 Assembler Tractor: JAQUI MEASUREMENT RESULTS: Intervals: Rate: 113 ND: 164 QRSD: 108 QT: 340 QTc: 466 Novi: P: 56 ND: 164 QRS: 9 T: 57 INTERPRETIVE STATEMENTS: Sinus tachycardia Incomplete right bundle branch block Borderline ECG No previous ECG available for comparison Electronically Signed On 02-04-23 08:17:35 CDT by Desmond Deutsch
[2023-02-04] MEDS ORDERED: EPINEPHRINE/PF 1 MG/ML AMP ONE (09:05)
[2023-02-04] MEDS ORDERED: LIDOCAINE 2% MPF 5 ML VIAL ONE (09:19)
[2023-02-04] MEDS ORDERED: propofoL 200 MG/20 ML VIAL IV ONE (09:20)
[2023-02-04] MEDS: PANTOPRAZOLE INJ 80 MG in NA CHLORIDE 0.9% 250 ML IV SCH ×3 (09:30→21:50)
--- NOTE | 2023-02-04 11:29 | P.CNS ---
Date of Consult: 02/04/23 Reason for Consult: JAYCE Requesting Physician: Bob Clark Chief Complaint: Diarrhea, fever, weakness, dizziness History of Present Illness: Patient is a 57-year-old male with a past medical history significant for hypertension on medication including a ACEi who presented yesterday to the ER with complaint of diarrhea, generalized weakness and dizziness for the past few days. Pt has also some fevers, chills and malaise and was febrile and had other signs of SIRS on presentation in addition to other abnormal laboratory findings including JAYCE, anemia, thrombocytopenia and other. Allergies Penicillins Allergy (Mild, Verified 02/04/23 07:20) UNKNOWN Home Medications: Amlodipine [Norvasc*] 5 mg PO DAILY 02/03/23 Lisinopril [Zestril] 20 mg PO DAILY 02/03/23 - Past Medical/Surgical History -: HTN - Family History Father Medical History: Diabetes - Social History Alcohol use: Yes CD- Drugs: No Caffeine use: Yes Place of Residence: Home Review of Systems General: Fever, Weakness, Malaise Eyes: Unremarkable ENT: Unremarkable Respiratory: Shortness of Breath Cardiovascular: Palpitations, Edema, Light Headedness Gastrointestinal: Nausea, Abdominal Pain, Diarrhea Genitourinary: As per HPI Musculoskeletal: Unremarkable Integumentary: Unremarkable Neurological: Weakness Lymphatics: As per HPI Physical Examination Temp Pulse Resp BP Pulse Ox 99.2 F 95 H 20 101/71 98 02/04/23 10:09 02/04/23 10:09 02/04/23 10:02/04/23 10:02/04/23 08:00 General: In no apparent distress, Cooperative HEENT: Atraumatic, Normocephalic Neck: Supple Respiratory: Normal air movement Cardiovascular: Regular rate/rhythm, Normal S1 S2 Gastrointestinal: Soft and benign, No tenderness, Other (Mild distention) Musculoskeletal: No contractures Integumentary: No rashes Neurological: Normal speech, Normal affect Laboratory Data (last 24 hrs) 02/03/23 09:11: Phosphorus 3.3, Magnesium 2.0 Conclusions/Impression: A/P) 1. Stage 1 JAYCE in the setting of sepsis, relative hypotension, volume depletion, concurrent ACEi use and other -Cr level downward trending with IVF hydration 2. Cont IVF but switch to LR IVF since it is a more balanced solution 3. Abnormal findings in urine, other including pyuria. Possible UTI, CT imaging with some non specific perinephric stranding. Cont Abx with gram negative coverage. F/u final UCx 4. GPC/gram positive sepsis/bacteremia, unspecifed source -f/u final cultures, Abx per primary team 5. Anemia and thrombocytopenia in the setting of sepsis, infection/inflammation +/- other. Further w/u and management per primary team 6. Hypotension resolved, BP holding. Cont to hold all scheduled anti hypertensives Nas Myers MD, DAMASO
[2023-02-04] MEDS: Levofloxacin500mg IV 500 MG/100 ML BAG IV SCH (11:32)
[2023-02-04] MEDS ORDERED: VANCOMYCIN 1.5 GM in NA CHLORIDE 0.9% 500 ML IVPB ONE (12:00)
[2023-02-04] MEDS: Ringers Lactate 1,000 ML IV SCH (12:15)
[2023-02-04] MEDS: ONDANSETRON 4 MG/2 ML VIAL IV PRN ×2 (12:39→20:52)
--- NOTE | 2023-02-04 14:35 | RAD REPORT ---
[facility] CLINICAL HISTORY: Dyspnea COMPARISON: Chest Single View dated 02/03/2023; Chest Single View dated 02/03/2023 TECHNIQUE: Portable AP view of the chest. FINDINGS: Mild hazy opacification in the left lung base, could be related to atelectasis given decre ased inspiratory effort since the prior exam. No definite new focal airspace opacity. No pneumothora x or effusion. The cardiomediastinal contours are unremarkable. IMPRESSION: No evidence of an acute cardiopulmonary process, as above.
[2023-02-04 15:03] LABS: Absolute Lymphocytes (CBC) 0.4 K/uL (0.7-4.9); Hematocrit 22.1 % (39.6-49.0); Lymphocytes % 5.6 % (15.3-44.8); MPV 7.9 fL (7.6-11.3); RBC Red Blood Cell Count 2.31 M/uL (4.33-5.43)
[2023-02-04 15:05] LABS: Anisocytosis 3+; Blood Morphology Comment NOTED (NOT SEEN); Platelet Estimate DECR; White Blood Cell Scan OK (OK)
[2023-02-04 18:20] LABS: C.diff Antigen/Toxin Ag neg : Tox neg (NEG : NEG)
[2023-02-04 22:32] LABS: Specific Gravity 1.021 (1.005-1.030); Urine Bacteria <20 /HPF (<20); Urine Bilirubin NEGATIVE (Negative); Urine Blood 3+ (OVER) (Negative); Urine Clarity Turbid (Clear); Urine Color Light-Yellow (Yellow); Urine Glucose NEGATIVE (Negative); Urine Mucus Slight /HPF (None Seen); Urine Protein 1+ (Negative); Urine RBC 21-50 /HPF (None Seen); Urine Urobilinogen Normal (Normal); Urine pH 5.5 (5.0-7.0)
[2023-02-05] MEDS: Ringers Lactate 1,000 ML IV SCH ×2 (00:13→11:56)
[2023-02-05] MEDS: METRONIDAZOLE 500mg IVPB 500 MG/100 ML BAG IV SCH ×3 (00:14→17:07)
[2023-02-05] MEDS ORDERED: CYANOCOBALAMIN 1000MCG/ML INJ IM ONE (07:51)
[2023-02-05] MEDS: Levofloxacin500mg IV 500 MG/100 ML BAG IV SCH (08:44)
[2023-02-05] MEDS: PANTOPRAZOLE INJ 80 MG in NA CHLORIDE 0.9% 250 ML IV SCH ×2 (08:50→20:04)
--- NOTE | 2023-02-05 10:53 | P.PN ---
Date of Service: 02/04/23 Subjective Patient with some abdominal distention. Patient with MSSA bacteremia. Patient remains anemic. liver function testing is elevated secondary to hemochromatosis. Monitor CBC and continue with antibiotics. Echocardiogram pending. Cardiology consultation obtained. Physical Examination - Vital Signs Reviewed - Physical Exam General: Alert, Oriented x3, Cooperative, Mild distress Respiratory: Diminished but clear bilaterally Cardiovascular: Regular rate and rhythm with systolic ejection murmur II-III/ Gastrointestinal: Normal bowel sounds, Distended, Tenderness Musculoskeletal: No clubbing, No contractures, No tenderness Integumentary: No rashes, No breakdown Neurological: Normal speech, Normal tone, Normal affect Assessment and Plan -Assessment Assessment: 1. Anemia 2. Sepsis POA 3. Diarrhea 4. JAYCE 5. Hematochromatosis 6. Hyponatremia 7. Hypokalemia 8. Thrombocytopenia 9. UTI 10. Hypertension - Plan Plan: 1. Continue with IV hydration and PPI drip 2. Continue with IV antibiotics; change to Levaquin or penicillin 3. Continue with pain control 4. Clear liquid diet 5. GI consultation appreciated 6. Serial CBC, monitor LFTs and renal function along with electrolytes 7. Testing for hemochromatosis labs sent 8. Echocardiogram 9. repeat blood cx 10. DVT prophylaxis
--- NOTE | 2023-02-05 10:55 | P.PN ---
Date of Service: 02/05/23 Subjective Echocardiogram is pending. Repeat blood cultures are pending. Patient's clinical symptoms are stable. Patient with some abdominal distention. Patient with MSSA bacteremia. Patient remains anemic. Liver function testing is elevated secondary to hemochromatosis. Monitor CBC and continue with antibiotics. Cardiology consultation obtained. Physical Examination - Vital Signs Reviewed - Physical Exam General: Alert, Oriented x3, Cooperative, Mild distress Respiratory: Diminished but clear bilaterally Cardiovascular: Regular rate and rhythm with systolic ejection murmur II-III/ Gastrointestinal: Normal bowel sounds, Distended, Tenderness Musculoskeletal: No clubbing, No contractures, No tenderness Integumentary: No rashes, No breakdown Neurological: Normal speech, Normal tone, Normal affect Assessment and Plan -Assessment Assessment: 1. Anemia 2. Sepsis POA 3. Diarrhea 4. JAYCE 5. Hematochromatosis 6. Hyponatremia 7. Hypokalemia 8. Thrombocytopenia 9. UTI 10. Hypertension - Plan Plan: 1. Continue with IV hydration and PPI drip 2. Continue with IV antibiotics; change to Levaquin or penicillin 3. Continue with pain control 4. Clear liquid diet 5. GI consultation appreciated 6. Serial CBC, monitor LFTs and renal function along with electrolytes 7. Testing for hemochromatosis labs sent 8. Echocardiogram 9. repeat blood cx 10. DVT prophylaxis
--- NOTE | 2023-02-05 10:56 | P.PN ---
Gen: (S) Pt appears more lethargic and altered this AM, at bedside, pt has some mild tachypnec but not needing O2, abd with mild distention (O) Vitals reviewed in the EMR General: Appears ill HEENT: Atraumatic, Normocephalic Neck: Supple Respiratory: MIld tachypnea, b/l air entry Cardiovascular: Mild tachy, murmur present Gastrointestinal: Soft, mild distention, BS present, no guarding Musculoskeletal: No contractures Integumentary: No rashes Neurological: Lethargic, awakens to sternal rub, opens eyes briefly, confused Laboratory Data (last 24 hrs) Reviewed in the EMR Conclusions/Impression: A/P) 1. Stage 1 JAYCE in the setting of sepsis, relative hypotension, volume depletion, concurrent ACEi use and other -Cr level yesterday was downward trending with IVF hydration. F/u labs from today 2. Cont IVF but switched to LR IVF since it is a more balanced solution, will lower rate 3. Abnormal findings in urine, other including pyuria. Possible UTI, CT imaging with some non specific perinephric stranding. Cont Abx with gram negative coverage. F/u final UCx 4. GPC/gram positive/MRSA sepsis/bacteremia, unspecifed source -Cont Vanc, monitor levels 5. Anemia and thrombocytopenia in the setting of sepsis, infection/inflammation +/- other. Sig protein albumin gap noted, ordered SPEP and FLC. Transfusions per typical tresholds, further w/u per primary team 6. Hypotension resolved, BP holding. Cont to hold all scheduled anti hypertensives for now Nas Myers MD, DAMASO
[2023-02-05] MEDS ORDERED: VANCOMYCIN 1.25 GM in NA CHLORIDE 0.9% 250 ML IVPB SCH (12:00)
[2023-02-05 12:23] LABS: Absolute Lymphocytes (CBC) 0.5 K/uL (0.7-4.9); Hematocrit 20.8 % (39.6-49.0); MCV 96.8 fL (80-100); MPV 8.1 fL (7.6-11.3); RBC Red Blood Cell Count 2.15 M/uL (4.33-5.43)
[2023-02-05 12:35] LABS: Albumin 1.6 g/dL (3.4-5.0); Bilirubin Total 0.5 mg/dL (0.2-1.0); Magnesium 2.2 mg/dL (1.6-2.4); Potassium 3.3 mEq/L (3.5-5.1); Protein, Total 10.3 g/dL (6.4-8.2)
--- NOTE | 2023-02-05 13:11 | RAD REPORT ---
EXAM DESCRIPTION: RAD - Abdomen W Erect - 02/05/2023 11:33 am CLINICAL HISTORY: abd distention COMPARISON: Chest Single View dated 02/04/2023; Chest Single View dated 02/03/2023 TECHNIQUE: Single AP view of the abdomen. FINDINGS: Marked gaseous distention, appears to be new mostly related to large bowel. No air-fluid l evels, free air, or pneumatosis. No suspicious calcifications. No significant bony abnormality. IMPRESSION: Gaseous distention likely related to large bowel.
[2023-02-05 13:21] LABS: Anisocytosis 3+; Blood Morphology Comment NOTED (NOT SEEN); Platelet Estimate DECR; White Blood Cell Scan OK (OK)
[2023-02-05 13:22] LABS: Macrocytosis 2+
--- NOTE | 2023-02-05 15:29 | CON ---
Date of Consultation: 02/05/2023 Reason For Consultation: Questionable endocarditis. History Of Present Illness: 57-year-old male, extremely poor historian, presented to the hospital wi th diarrhea, fever, and generalized weakness. Has a past medical history of hypertension. The patie nt is not able to tell me any history, but he apparently has been having fever, diaphoresis, cough, a nd fatigue along with some chest discomfort. Past Medical History: As outlined above in the HPI. Medication: Refer to reconciliation sheet for detailed list. Allergies: PENICILLIN. Family History: No premature coronary artery disease or cancer. Social History: He does not smoke or drink. Does not use any drugs. Review of Systems: All systems reviewed and they were negative except what mentioned in HPI. Physical Examination: Vital Signs: Reviewed. Head and Neck: Pupils are equal, reactive to light. Intact eye movements. No JVD. No cervical lym phadenopathy. Neck is supple. Thyroid is not enlarged. Lungs: Clear to auscultation bilaterally. No rhonchi, wheezing, or crackles. No accessory muscle u se. Heart: Irregular. No extra sounds. Abdomen: Soft, nontender. Bowel sounds positive. No organomegaly. No masses or hernia. No rigidi ty or rebound. Extremities: No clubbing or cyanosis. Intact pulses. Skin: No rash. Neurologic: Alert, awake, with confusion. No focal deficits appreciated. Investigations: BUN 50, creatinine 1.44, and his NT-proBNP is 3710. White blood cell count is 5.4, hemoglobin 7, and the blood cultures were positive for Staph aureus bacteria. Assessment And Recommendation: 1.Bacteremia with Staph aureus bacteria. Definitely endocarditis is a possibility. The patient gunn s not even have a high white count or any sepsis features at this point. My recommendations will be obtain transthoracic echocardiogram. If there is a concern about endocarditis that is not very well seen in the transthoracic echo, then we will plan for SHREYA. Further plan and recommendations will fol low after the transthoracic echo is done. Bacteremia with Staph aureus, recommend IV antibiotics, pe nding echo. 2.Hypertension. Blood pressure is controlled. SR/MODL Voice ID: [id number] Report ID: [id number]
[2023-02-05] MEDS ORDERED: NA CHLORIDE 0.9% 250 ML ONE (16:16)
[2023-02-05] MEDS ORDERED: FUROSEMIDE 40 MG/4 ML VIAL IV ONE (18:00)
[2023-02-05] MEDS ORDERED: ALBUMIN HUMAN 25% 100 ML IV ONE (18:00)
[2023-02-05] MEDS: KCL 20 MEQ/100 mL IVPB 20 MEQ/100 ML BAG IV SCH ×2 (18:26→21:11)
[2023-02-05] MEDS: Mupirocin NASAL 2 APPL/1 GM TUBE NAS SCH (20:05)
[2023-02-05] MEDS: ENSURE CLEAR 200 ML CAN PO SCH (20:05)
[2023-02-05 21:25] LABS: Hematocrit 23.2 % (39.6-49.0)
[2023-02-06] MEDS ORDERED: FUROSEMIDE 40 MG/4 ML VIAL IV SCH (01:00)
[2023-02-06] MEDS: METRONIDAZOLE 500mg IVPB 500 MG/100 ML BAG IV SCH ×3 (01:01→17:08)
[2023-02-06] MEDS: ACETAMINOPHEN 650MG/RECT SUPP PR PRN ×3 (03:51→21:14)
[2023-02-06] MEDS: PANTOPRAZOLE INJ 80 MG in NA CHLORIDE 0.9% 250 ML IV SCH ×2 (06:14→15:30)
[2023-02-06 06:17] LABS: Absolute Lymphocytes (CBC) 0.4 K/uL (0.7-4.9); Hematocrit 21.5 % (39.6-49.0); Lymphocytes % 10.6 % (15.3-44.8); MCV 94.4 fL (80-100); MPV 8.2 fL (7.6-11.3); RBC Red Blood Cell Count 2.28 M/uL (4.33-5.43)
[2023-02-06 06:18] LABS: Protime INR 1.46
[2023-02-06] MEDS: Ringers Lactate 1,000 ML IV SCH (06:18)
[2023-02-06 06:33] LABS: Albumin 1.8 g/dL (3.4-5.0); Bilirubin Total 0.7 mg/dL (0.2-1.0); Magnesium 2.2 mg/dL (1.6-2.4); Potassium 2.9 mEq/L (3.5-5.1); Protein, Total 9.8 g/dL (6.4-8.2)
[2023-02-06] MEDS ORDERED: ALBUMIN HUMAN 25% 50 ML IV ONE (07:24)
--- NOTE | 2023-02-06 07:34 | RAD REPORT ---
EXAM DESCRIPTION: RAD - Chest Single View - 02/06/2023 5:00 am CLINICAL HISTORY: pneumonia COMPARISON: Chest Single View dated 02/04/2023; Chest Single View dated 02/03/2023; Chest Single View dated 02/03/2023; Chest Abd Pelvis Wo Con dated 02/03/2023 FINDINGS: Lines: None. Lungs: Increased and retrocardiac opacities. Pleural: No significant pleural effusions or pneumothorax. Cardiac: Similar size configuration. Mediastinum: Within normal limits. Bones: No acute fractures. Other: None IMPRESSION: Mild new retrocardiac opacities may reflect developing pneumonia given the clinical conc marina.
[2023-02-06] MEDS: Mupirocin NASAL 2 APPL/1 GM TUBE NAS SCH ×2 (07:53→20:45)
[2023-02-06] MEDS: ENSURE CLEAR 200 ML CAN PO SCH ×3 (07:53→20:50)
[2023-02-06] MEDS ORDERED: POTASSIUM CL 40 MEQ in NA CHLORIDE 0.9% 500 ML IV SCH (08:00)
[2023-02-06] MEDS ORDERED: D5W 1,000 ML with POTASSIUM CL 20 MEQ IV SCH ×2 (09:00)
[2023-02-06 09:53] LABS: Arterial Blood Carboxyhemoglob 1.8 % (0-1.5); Blood Gas Oxyhemoglobin 92.3 % (94-97); Blood O2 Saturation 95.6 % (92-98.5)
[2023-02-06] MEDS: Levofloxacin500mg IV 500 MG/100 ML BAG IV SCH (09:58)
[2023-02-06] MEDS ORDERED: ACETAMINOPHEN 325 MG/SUPP PR ONE (11:35)
--- NOTE | 2023-02-06 11:58 | P.PN ---
Gen: (S) Pt remains lethargic/altered, has developed a fever now, getting KCL replacement, IVF switched as now hypernatremic. Case reviewed with pt's brother at bedside, primary RN and hospitalist, Dr. Montero (O) Vitals reviewed in the EMR General: Appears ill HEENT: Atraumatic, Normocephalic Neck: Supple Respiratory: MIld tachypnea, b/l air entry Cardiovascular: Mild tachy, murmur present Gastrointestinal: Soft, mild distention, BS present, no guarding Musculoskeletal: No contractures Integumentary: Rash across Rt ear extending across neck, no warmth, tenderness, no blisters Neurological: Lethargic, awakens to sternal rub, opens eyes briefly, confused Laboratory Data (last 24 hrs) Reviewed in the EMR Conclusions/Impression: A/P) 1. Stage 1 JAYCE in the setting of sepsis, relative hypotension, volume depletion, concurrent ACEi use and other -Cr level has downward trended from initial levels with IVF hydration but not normalized. No ellis present for accurate UOP. 2. Has developed hypernatremia, will switch to hypotonic D5W IVF with KCL. Hypokalemia 2nd to renal/GI losses -replacing with IV KCL 3. Abnormal findings in urine, other including pyuria. CT imaging with some non specific perinephric stranding. Cont Abx with gram negative coverage. 4. GPC/gram positive/MSSA sepsis/bacteremia (note corrected), unspecifed source -Cont Abx 5. Anemia and thrombocytopenia in the setting of sepsis, infection/inflammation +/- other. Sig protein albumin gap noted, ordered SPEP and FLC. Transfusions per typical tresholds, further w/u per primary team 6. Hypotension resolved, BP holding. Cont to hold all scheduled anti hypertensives for now Nas Myers MD, DAMASO
[2023-02-06] MEDS ORDERED: NA CHLORIDE 0.9% 250 ML ONE ×2 (13:22→18:00)
--- NOTE | 2023-02-06 14:20 | ECHO ---
HEIGHT: 5 ft 8 in WEIGHT: 180 lb 0 oz DATE OF STUDY: 02/06/[address]: Louisa Montero MD 2-DIMENSIONAL: YES M.MODE: YES DOPPLER: YES COLOR FLOW: YES TDS: PORTABLE: YES DEFINITY: BUBBLE STUDY: DIAGNOSIS: ENDOCARDITIS CARDIAC HISTORY: CATHERIZATION: NO SURGERY: NO PROSTHETIC VALVE: NO PACEMAKER: NO MEASUREMENTS (cm) DIASTOLIC (NORMALS) SYSTOLIC (NORMALS) IVSd 1.2 (0.6-1.2) LA Diam 3.3 (1.9-4.0) LVEF 59% LVIDd 4.9 (3.5-5.7) LVIDs 3.4 (2.0-3.5) %FS 31% LVPWd 1.3 (0.6-1.2) Ao Diam 2.9 (2.0-3.7) 2 DIMENSIONAL ASSESSMENT: RIGHT ATRIUM: NORMAL LEFT ATRIUM: NORMAL RIGHT VENTRICLE: NORMAL LEFT VENTRICLE: NORMAL TRICUSPID VALVE: MILD TRICUSPID REGURGITATION MITRAL VALVE: MILD MITRAL REGURGITATION PULMONIC VALVE: NORMAL AORTIC VALVE: THICKENED AORTIC VALVE PERICARDIAL EFFUSION: NONE AORTIC ROOT: NORMAL LEFT VENTRICULAR WALL MOTION: NORMAL DOPPLER/COLOR FLOW: SEE BELOW COMMENTS: 1. NORMAL LEFT VENTRICULAR EJECTION FRACTION 55-60% WITH NORMAL WALL MOTION 2. THICKENED AORTIC VALVE WITH MILD AORTIC INSUFFICIENCY, THIS COULD REPRESENT A VEGETATION OR CALCIFICATION OF AORTIC VALVE. RECOMMEND FOLLOW UP TRANSESOPHAGEAL ECHOCARDIOGRAM EARLY NEXT WEEK. 3. MILD TRICUSPID REGURGITATION 4. NORMAL DIASTOLIC FUNCTION 5. MILD MITRAL REGURGITATION TECHNOLOGIST: STEFANIA LINDSEY
[2023-02-06 16:04] LABS: Absolute Lymphocytes (CBC) 0.5 K/uL (0.7-4.9); Hematocrit 23.3 % (39.6-49.0); Lymphocytes % 11.7 % (15.3-44.8); MCV 93.6 fL (80-100); RBC Red Blood Cell Count 2.49 M/uL (4.33-5.43)
[2023-02-06 16:34] LABS: Albumin 1.7 g/dL (3.4-5.0); Bilirubin Total 0.9 mg/dL (0.2-1.0); Magnesium 2.3 mg/dL (1.6-2.4); Potassium 3.3 mEq/L (3.5-5.1); Protein, Total 9.6 g/dL (6.4-8.2)
[2023-02-06] MEDS ORDERED: CYANOCOBALAMIN 1000MCG/ML INJ IM ONE (17:15)
[2023-02-06] MEDS ORDERED: D5W 0 ML IV ONE (21:00)
[2023-02-06] MEDS ORDERED: HYDROCORTISONE SUC 100 MG INJ IV ONE (21:19)
[2023-02-07] MEDS: PANTOPRAZOLE INJ 80 MG in NA CHLORIDE 0.9% 250 ML IV SCH (00:27)
[2023-02-07] MEDS: METRONIDAZOLE 500mg IVPB 500 MG/100 ML BAG IV SCH (00:34)
[2023-02-07 04:05] VITALS: O2SAT 97
[2023-02-07 04:17] LABS: Absolute Lymphocytes (CBC) 0.5 K/uL (0.7-4.9); Hematocrit 24.5 % (39.6-49.0); MCV 93.4 fL (80-100); MPV 8.3 fL (7.6-11.3); RBC Red Blood Cell Count 2.62 M/uL (4.33-5.43)
[2023-02-07 04:44] VITALS: BP 157/89; TEMP 98.4
[2023-02-07 04:44] LABS: Albumin 1.9 g/dL (3.4-5.0); Bilirubin Total 0.8 mg/dL (0.2-1.0); Magnesium 2.3 mg/dL (1.6-2.4); Phosphorus 2.2 mg/dL (2.5-4.9); Potassium 3.5 mEq/L (3.5-5.1)
--- NOTE | 2023-02-07 07:06 | P.PN ---
Date of Service: 02/06/23 Subjective Patient was more lethargic today. After reviewing the chart patient had extensive comorbidities and he really has not improved after his admission. He has hemochromatosis and upper GI bleeding along with the esophageal stenosis and gastric ulcers. He has newly discovered hemochromatosis that appears to have resulted and liver injury. He has pancytopenia at this time and has had 4 units of packed red blood cells transfused. Patient also had is bacteremic most likely from endocarditis. Patient will need a SHREYA. I think it would be good for him to have a corporate event planner, director of midwifery/staff midwife, and the ability to do the SHREYA readily available. At this time I have initiated transfer to [facility] for closer monitoring of the patient Physical Examination - Vital Signs Reviewed - Physical Exam General: . Patient is lethargic and not as interactive as he was yesterday Respiratory: Diminished but clear bilaterally Cardiovascular: Regular rate and rhythm with systolic ejection murmur II-III/ Gastrointestinal: Normal bowel sounds, Distended, Tenderness Musculoskeletal: No clubbing, No contractures, No tenderness Integumentary: No rashes, No breakdown Neurological: Generalized weakness Assessment and Plan -Assessment Assessment: 1. Anemia secondary to ABL; 2. 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 Diarrhea 4. JAYCE 5. Hematochromatosis 6. Hyponatremia 7. Hypokalemia 8. Thrombocytopenia 9. UTI 10. Hypertension - Plan Plan: 1. Continue with IV hydration and PPI drip 2. Continue with IV antibiotics; change to Ancef 3. Continue with pain control 4. Clear liquid diet; advance as tolerated 5. GI consultation appreciated 6. Serial CBC, monitor LFTs and renal function along with electrolytes 7. Testing for hemochromatosis labs sent 8. Echocardiogram pending 9. repeat blood cx with 11/25 MSSA 10. DVT prophylaxis
--- NOTE | 2023-02-07 09:02 | RAD REPORT ---
EXAM DESCRIPTION: RAD - Chest Single View - 02/07/2023 6:01 am CLINICAL HISTORY: pneumonia Chest pain. COMPARISON: Chest Single View dated 02/06/2023; Chest Single View dated 02/04/2023; Chest Single View dated 02/03/2023; Chest Single View dated 02/03/2023 FINDINGS: Portable technique limits examination quality. Moderate bilateral pulmonary opacities are present, slightly worse than on yesterday's study. Most li leona this represents mild worsened in pulmonary edema or pneumonia. The heart is mildly enlarged. No displaced fractures.
[2023-02-07 14:29] LABS: Rheumatoid Factor POS (NEG); Rheumatoid Factor Titer 1:2 (16 RF IU/mL)
[2023-02-07] MEDS ORDERED: CEFAZOLIN 2 GM in NA CHLORIDE 0.9% 100 ML IVPB SCH (17:30)
[2023-02-09 14:40] LABS: KAPPA LIGHT CHAIN, FREE SERUM 6.9 mg/L (3.3-19.4)
[2023-02-09 15:22] LABS: Albumin, (SPE) 2.4 g/dL (3.8-4.8); Alpha-1-Globulins 0.5 g/dL (0.2-0.3); Gamma Globulins 0.1 g/dL (0.8-1.7); INTERPRETATION REPORT
== END 2023-02-07 08:07 | disposition short-term general hospital (02) | DRG 872 ==
LOC: ER 08:38 → ERHOLD 12:26 → 4TH 13:40
PROVIDERS: ADMIT Hospitalist; ATTEND Hospitalist
PROC: 0DB78ZX Excision of Stomach, Pylorus, Via Natural or Artificial Opening Endoscopic, Diagnostic (ICD-10-PCS; 2023-02-04)
PROC: 0DB68ZX Excision of Stomach, Via Natural or Artificial Opening Endoscopic, Diagnostic (ICD-10-PCS; 2023-02-04)
PROC: 0D568ZZ Destruction of Stomach, Via Natural or Artificial Opening Endoscopic (ICD-10-PCS; 2023-02-04)
PROC: 30233N1 Transfusion of Nonautologous Red Blood Cells into Peripheral Vein, Percutaneous Approach (ICD-10-PCS; 2023-02-04)
PROC: 0DB98ZX Excision of Duodenum, Via Natural or Artificial Opening Endoscopic, Diagnostic (ICD-10-PCS; principal; 2023-02-04 08:30)
PROC: 30233R1 Transfusion of Nonautologous Platelets into Peripheral Vein, Percutaneous Approach (ICD-10-PCS; 2023-02-06)
DX: A41.01 Sepsis due to Methicillin susceptible Staphylococcus aureus (principal); E87.1 Hypo-osmolality and hyponatremia; N17.9 Acute kidney failure, unspecified; K62.6 Ulcer of anus and rectum; N39.0 Urinary tract infection, site not specified; I38 Endocarditis, valve unspecified; K31.819 Angiodysplasia of stomach and duodenum without bleeding; I10 Essential (primary) hypertension; E87.6 Hypokalemia; K22.2 Esophageal obstruction; K29.70 Gastritis, unspecified, without bleeding; D64.9 Anemia, unspecified; E83.119 Hemochromatosis, unspecified; E86.9 Volume depletion, unspecified; D69.59 Other secondary thrombocytopenia; K74.60 Unspecified cirrhosis of liver; Z88.0 Allergy status to penicillin; Z79.899 Other long term (current) drug therapy; Z20.822 Contact with and (suspected) exposure to COVID-19
CPT/HCPCS: 36415; 36430; 36600; 71045; 71250; 74019; 74176; 76700; 80053; 80061; 80074; 80143; 80179; 81001; 81256; 82077; 82140; 82607; 82728; 82805; 83520; 83540; 83605; 83735; 83880; 84100; 84145; 84165; 84439; 84443; 84466; 85014; 85018; 85025; 85044; 85610; 85730; 86038; 86140; 86200; 86225; 86430; 86850; 86900; 86901; 86920; 87040; 87045; 87046; 87077; 87086; 87088; 87177; 87186; 87205; 87209; 87324; 87635; 88305; 88312; 89055; 93005; 93306; 96361; 96365; 99285; C9113; J0171; J1720; J1940; J2001; J2405; J2704; J3420; J3480; J7030; J7040; J7050; J7120; P9016; P9047; P9073